=== PATIENT | male | born 1970 | race Caucasian/White ===

== ENCOUNTER 2018-04-27 17:52 | Emergency (ER) | payer SELFPAY ==
[~2018-04-27] VITALS: Ht 180.3 cm; Wt 113.4 kg
[2018-04-27 18:41] LABS: HEMATOCRIT 48.5 % (38.0-50.0); HEMOGLOBIN 16.7 G/DL (12.5-16.6); MCH 32.6 PG (29.0-34.0); MCHC 34.4 G/DL (30.0-36.0); MCV 94.7 FL (86-99); PLATELET COUNT 157 K/uL (156-360); RBC DIS.WIDTH-CV 12.7 % (11.8-14.6); RBC DIS.WIDTH-SD 44.3 % (39-53); RED BLOOD COUNT 5.12 M/uL (4.00-5.50); WHITE BLOOD COUNT 9.3 K/uL (4.1-10.2)
[2018-04-27 18:52] LABS: CHLORIDE 106 mEq/L (99-109); SODIUM 139 mEq/L (136-147)
[2018-04-27 18:53] LABS: GLUCOSE 203 mg/dL (70-99)
[2018-04-27 18:58] LABS: UREA NITROGEN (BUN) 13 mg/dL (9-23)
[2018-04-27 18:59] LABS: GFR ESTIMATE (CALCULATED) > 59 mL/min/ (58.99-99999)
[2018-04-27 19:31] LABS: APPEARANCE CLEAR ((CLEAR)); BILIRUBIN NEGATIVE; BLOOD NEGATIVE; COLOR YELLOW ((YELLOW)); GLUCOSE (STRIP) >=500; KETONES 5; LEUKOCYTES NEGATIVE; NITRITE NEGATIVE; PROTEIN (STRIP) NEGATIVE; SPECIFIC GRAVITY 1.027 (1.000-1.030); UCUL ADDED? NO
[2018-04-27] MEDS ORDERED: AUGMENTIN875 MG PO (21:14)
[2018-04-27 21:32] VITALS: BP 112/65
[2018-04-28 06:36] LABS: ABS NEUTROPHIL COUNT 4.1; ANISOCYTOSIS NONE SEEN; ATYPICAL LYMPHOCYTE 10.3 %; BASOPHILS 0.9 %; EOSINOPHIL ABS CT 0.3; EOSINOPHILS 3.4 % (0-5.0); LYMPHOCYTES 33.6 % (15.0-45.0); MONOCYTES 7.8 % (0-9.0); SMUDGE CELLS 26.7
== END 2018-04-27 21:33 | disposition home or self-care (01) ==
LOC: EME 17:52
PROVIDERS: Nurse Practitioner Family
DX: R42 Dizziness and giddiness (principal); H53.8 Other visual disturbances; E11.65 Type 2 diabetes mellitus with hyperglycemia; J01.90 Acute sinusitis, unspecified; R53.1 Weakness; Z91.14 Patient's other noncompliance with medication regimen; F17.210 Nicotine dependence, cigarettes, uncomplicated
CPT/HCPCS: 70450; 80048; 81003; 82948; 85025; 93005